=== PATIENT | male | born 1960 | race Caucasian/White ===

== ENCOUNTER 2017-12-29 05:48 | Emergency (ER) | payer BC ==
[~2017-12-29] VITALS: Wt 74.2 kg
[~2017-12-29 05:48] MED LIST: FLEXERIL 1010 MG/TAB PO; MOTRIN 800800 MG/TAB PO; NO HOME MEDICATIONS; NORCO 325 MG-51 TAB PO; PRAVACHOL 20MG20 MG PO; cholesterol med
[2017-12-29 05:53] VITALS: TEMP 96.4
[2017-12-29] MEDS ORDERED: ZOLOFT 50MG50 MG PO (06:00)
[2017-12-29] MEDS ORDERED: ARTANE 2MG2 MG PO (06:02)
[2017-12-29 06:33] LABS: BASO % 0.4 % (0.0-2.0); EOS # 0.1 (0.0-0.7); EOS % 1.4 % (0-4.0); GRAN # 4.7 (1.4-6.5); GRAN % 61.3 % (42.2-75.2); HEMATOCRIT 43.1 % (42.0-52.0); LYMPH # 2.3 (1.2-3.4); LYMPH % 29.9 % (20.0-51.0); MEAN CELL VOLUME 91 fl (80.0-100.0); MEAN CORPUSCULAR HEMOGLOBIN 32 pg (27.0-31.0); MEAN CORPUSCULAR HGB CONC 35 g/dl (33.0-37.0); MEAN PLATELET VOLUME 8.9 fl (7.4-10.4); MONO # 0.5 (0.1-0.6); MONO % 6.7 % (1.7-9.3); PLATELET COUNT 235 K/mm3 (130-400); RED BLOOD COUNT 4.74 M/mm3 (4.20-5.60)
[2017-12-29 06:45] LABS: ALBUMIN 4.4 gm/dL (3.5-5.0); BILIRUBIN,TOTAL 0.6 mg/dL (0.0-1.0); CALCIUM 9.2 mg/dL (8.4-10.2); CREATININE, serum 0.97 mg/dL (0.66-1.25); POTASSIUM 3.7 mmol/L (3.4-5.0); TOTAL PROTEIN 8.5 gm/dL (6.4-8.2)
[2017-12-29 07:12] VITALS: BP 129/85; PULSE 60
== END 2017-12-29 07:13 | disposition home or self-care (01) ==
LOC: COL.ER 05:48
PROVIDERS: Emergency Medicine
DX: R68.2 Dry mouth, unspecified (principal); R25.1 Tremor, unspecified; G20 Parkinson's disease; E78.5 Hyperlipidemia, unspecified
CPT/HCPCS: J2060; J7030

== ENCOUNTER → 2020-07-16 | Outpatient (CLI) | payer BC ==
[~2020-07-16] MED LIST changes: +ARTANE 2MG2 MG PO; +ZOLOFT 50MG50 MG PO
== END ==
LOC: ZCOL.LAB 21:41
DX: U07.1 COVID-19 (principal)

== ENCOUNTER 2024-04-13 23:16 | Inpatient (IN) | payer SELFPAY ==
[~2024-04-13] VITALS: Ht 165.1 cm; Wt 81.6 kg
[2024-04-13 23:45] LABS: BASO % 0.2 % (0.0-2.0); GRAN # 8.4 K/mm3 (1.4-6.5); HEMATOCRIT 40.1 % (42.0-52.0); HEMOGLOBIN 13.8 g/dl (13.5-18.0); LYMPH % 9.7 % (20.0-51.0); MEAN CELL VOLUME 92 fl (80.0-100.0); MEAN CORPUSCULAR HEMOGLOBIN 32 pg (27-31); MEAN CORPUSCULAR HGB CONC 34 g/dl (33.0-37.0); MEAN PLATELET VOLUME 8.7 fl (7.4-10.4); MONO # 0.6 K/mm3 (0.1-0.6); MONO % 5.7 % (1.7-9.3); PLATELET COUNT 186 K/mm3 (130-400); RED BLOOD COUNT 4.35 M/mm3 (4.20-5.60); REDCELL DISTRIBUTION WIDTH-CV 12.8 % (11.5-14.5)
[2024-04-13] MEDS ORDERED: NS 1,000 ML IV ONE (23:45)
[2024-04-13] MEDS ORDERED: Ibuprofen 400 MG TAB PO ONE (23:45)
[2024-04-13] MEDS ORDERED: Acetaminophen 325 MG TAB PO ONE (23:45)
[2024-04-14] VITALS (376 sets, daily range): BP systolic 96–129; BP diastolic 64–80; PULSE 66–100; TEMP 97.8–101; O2SAT 91–100
[2024-04-14 00:04] LABS: ALBUMIN 3.6 g/dL (3.4-4.8); BILIRUBIN,TOTAL 0.4 mg/dL (0.2-1.2); CALCIUM 8.6 mg/dL (8.4-10.2); CREATININE, serum 1.28 mg/dL (0.72-1.25); POTASSIUM 3.6 mEq/L (3.5-4.5)
[2024-04-14] MEDS ORDERED: MIRAPEX1.5 MG PO (01:20)
[2024-04-14] MEDS ORDERED: SEROQUEL 2525 MG/TAB PO (01:21)
[2024-04-14] MEDS ORDERED: SINEMET-25/251 UDTAB PO (01:21)
[2024-04-14 01:22] LABS: PH 5.5 (5.0-8.5); URINE APPEARANCE CLEAR (CLEAR/HAZY); URINE BLOOD TRACE (NEGATIVE); URINE COLOR YELLOW (YELLOW); URINE GLUCOSE NEGATIVE (NEGATIVE); URINE KETONE NEGATIVE (NEGATIVE); URINE NITRATE NEGATIVE (NEGATIVE); URINE PROTEIN(semi-quant) 1+ (NEGATIVE); URINE UROBILINOGEN 0.2 E.U/dL (0.2-1.0)
[2024-04-14 01:24] LABS: COLLECTION METHOD CLEAN CATCH
[2024-04-14] MEDS ORDERED: cefTRIAXone 2 G in Water For Injection,Sterile 20 ML IV SCH (01:45)
[2024-04-14] MEDS ORDERED: LR 1,000 ML IV SCH (01:45)
[2024-04-14] MEDS ORDERED: NS 1,000 ML IV SCH (01:45)
[2024-04-14] MEDS ORDERED: Albuterol/Ipratropium 3 MG-0.5 MG/3 ML Neb Soln IH PRN (01:45)
[2024-04-14] MEDS ORDERED: Acetaminophen 325 MG TAB PO PRN (01:45)
[2024-04-14] MEDS ORDERED: Albuterol/Ipratropium 3 MG-0.5 MG/3 ML Neb Soln IH SCH (02:00)
--- NOTE | 2024-04-14 02:17 | NUR ---
Report received from ISAURO Weber at 0208. Pt arrived to ICU from ED at 0217 via wheelchair. ISAURO Weber and family member at bedside at time of arrival. This RN and ISAURO Mireles at bedside to greet pt in room. Pt belongings (shoes, pants, necklackes) placed in cabinet at time of arrival. Pt transferred from wheelchair to bed via standby assist without difficulty. Monitors placed on pt. Pt does not complain of pain or discomfort at this time. This RN takes over care of pt at this time.
[2024-04-14] MEDS ORDERED: Doxycycline Monohydrate 100 MG CAP PO SCH (07:00)
[2024-04-14] MEDS ORDERED: Carbidopa/Levodopa 25-250 MG TAB PO SCH (07:00)
--- NOTE | 2024-04-14 08:45 | NUR ---
PT IS RESTING IN BED WATCHING TV. SHE IS TOGOLESE SPEAKING ONLY, BUT WE HAVE BEEN ABLE TO COMMUNIATE APPROPRIATELY UP TO THIS POINT. WE WILL GET THE SHAFT REPAIRER FOR HIS REMAINING STAY. HIS IS AT THE BEDSIDE, SHE DOES NOT SPEAK KOREAN. HE IS COUGHING, BUT DOES NOT APPEAR TO BE IN ANY DISTRESS.
[2024-04-14] MEDS ORDERED: metroNIDAZOLE 250 MG TAB PO SCH (09:30)
--- NOTE | 2024-04-14 11:13 | NUR ---
qualified craft worker electrician was notified patient is Lao Speaking. SW utilized [employer] engineering technician services to speak with patient and his , Melissa, P# [phone], to complete assessment. Jemma (daughter) P# [phone], Merlene (daughter) P# [phone] are also listed as contacts. PCP is Cassandra Braswell at [facility]. Pharmacy is [facility] on [address]. Patient reports his Parkinson's medications were costly, SW discussed [facility] and provided one of the cards. SW also expressed it would be beneficial to speak with his pharmacist and primary care physician as there might be discount programs that may make his prescriptions more affordable. Patient and understood. Patient does not have insurance. SW discussed DPOA-HC with patient and he reported his DPOA-HC is Jemma, social work therapist asked if that was in writing. Patient stated no, social work therapist explained without this in writing, decision making would go to his if there was an emergency, patient stated he was okay with that. No DME at this time, patient reports to be independent with ADLS and has a form of transportation for appointments. Patient would like to return home at time of discharge. SW secure emailed financial counseling to meet with patient about financial application. Discharge plan: Home pending medical recommendations.
--- NOTE | 2024-04-14 11:47 | NUR ---
Patient arrived to the medical unit by wheelchair. Alert and oriented x 4, States some headache, SOB, constant cough. He would like to eat something. Ordered food. VS 123/7496% RA, P 89. R18 T101.
[2024-04-14] MEDS ORDERED: Menthol Cough/Sore Throat LOZENGE MM PRN (13:30)
--- NOTE | 2024-04-14 15:30 | NUR ---
Patient continues with cough, Mcdade provided. POC explained. Stool sent to the lab, results pending.
[2024-04-14 16:05] LABS: CLOSTRIDIUM DIFF A/B NEG
[2024-04-14] MEDS ORDERED: Loperamide 2 MG CAP PO ONE (17:30)
[2024-04-14] MEDS ORDERED: Loperamide 2 MG CAP PO PRN (17:30)
[2024-04-14] MEDS ORDERED: Benzonatate 100 MG CAP PO SCH (18:00)
[2024-04-14] MEDS ORDERED: QUEtiapine 25 MG TAB PO SCH (21:00)
[2024-04-15 00:33] VITALS: BP_SYST 117
--- NOTE | 2024-04-15 00:51 | NUR ---
patient lying in bed, alert and oriented x4. yakut speaking, can understand and speak some frisian, family member at bedside. denies chest pain, shortness of breath, diarrhea, and nausea. IV in Rf is patent, site CDi with LR running at 125 ml/hr. no remarkable skin findings. ambulates with steady gait. per request, chicken broth provided. tylenol given for slight elevated temperature. call light within reach. pt has no further needs, questions or concerns at this time.
[2024-04-15 03:39] VITALS: BP 112/71; PULSE 70; TEMP 97.9
[2024-04-15 04:06] VITALS: BP_SYST 112
[2024-04-15 06:54] LABS: BASO % 0.3 % (0.0-2.0); EOS # 0.1 K/mm3 (0.0-0.7); EOS % 1.8 % (0.0-4.0); GRAN # 3.8 K/mm3 (1.4-6.5); GRAN % 61.7 % (42.2-75.2); HEMATOCRIT 38.9 % (42.0-52.0); HEMOGLOBIN 13.1 g/dl (13.5-18.0); LYMPH # 1.8 K/mm3 (1.2-3.4); LYMPH % 28.3 % (20.0-51.0); MEAN CELL VOLUME 93 fl (80.0-100.0); MEAN CORPUSCULAR HEMOGLOBIN 31 pg (27-31); MEAN CORPUSCULAR HGB CONC 34 g/dl (33.0-37.0); MEAN PLATELET VOLUME 9.1 fl (7.4-10.4); MONO # 0.5 K/mm3 (0.1-0.6); MONO % 7.4 % (1.7-9.3); PLATELET COUNT 173 K/mm3 (130-400); RED BLOOD COUNT 4.17 M/mm3 (4.20-5.60); REDCELL DISTRIBUTION WIDTH-CV 13.2 % (11.5-14.5)
[2024-04-15 07:19] LABS: CALCIUM 8.3 mg/dL (8.4-10.2); CREATININE, serum 0.87 mg/dL (0.72-1.25); POTASSIUM 3.6 mEq/L (3.5-4.5)
[2024-04-15 07:38] VITALS: BP 121/74; PULSE 59; TEMP 98
--- NOTE | 2024-04-15 08:05 | NUR ---
Patient awake, alert and oriented. Denies pain, shortness of breath or nausea. States his diarrhea is improving. Bed in lowest position with call light witin reach.
[2024-04-15] MEDS ORDERED: ZITHROMAX500 M2 PO (08:23)
[2024-04-15] MEDS ORDERED: Azithromycin 250 MG TAB PO SCH (09:00)
[2024-04-15 09:52] VITALS: BP_SYST 121
--- NOTE | 2024-04-15 11:03 | NUR ---
Patient discharged to home, educated on discharge instructions and new medications. Used lmsw while educating patient. Pt verbalized understanding. All belongings sent home with patient. Assisted to car by nursing staff.
== END 2024-04-15 11:13 | disposition home or self-care (01) | DRG 872 ==
LOC: COL.ER 23:16 → ICU 04-14 01:42 → MEDICAL 04-14 11:36
PROVIDERS: Nurse Practitioner Family; Nurse Practitioner Primary Care; ADMIT Internal Medicine
DX: A41.51 Sepsis due to Escherichia coli [E. coli] (principal); E87.20 Acidosis, unspecified; N17.9 Acute kidney failure, unspecified; E87.1 Hypo-osmolality and hyponatremia; G20.A1 Parkinson's disease without dyskinesia, without mention of fluctuations; E78.5 Hyperlipidemia, unspecified; B96.89 Other specified bacterial agents as the cause of diseases classified elsewhere; Z20.822 Contact with and (suspected) exposure to COVID-19; Z79.899 Other long term (current) drug therapy
CPT/HCPCS: J0696; J1650; J7030; J7120